=== PATIENT | male | born 1995 | race African-American/Black ===

== ENCOUNTER 2018-10-09 15:50 | Emergency (ER) | payer MEDICAID ==
[~2018-10-09] VITALS: Ht 182.9 cm; Wt 90.0 kg
[2018-10-09 17:45] VITALS: BP 124/84
== END 2018-10-09 22:45 | disposition left against medical advice (07) ==
LOC: ER 15:50
DX: R60.9 Edema, unspecified (principal); Z53.21 Procedure and treatment not carried out due to patient leaving prior to being seen by health care provider

== ENCOUNTER 2020-12-23 20:00 | Emergency (ER) | payer MEDICAID ==
[~2020-12-23] VITALS: Ht 182.9 cm; Wt 91.0 kg
[2020-12-23] MEDS ORDERED: KETOROLAC 60MG/2ML VIAL IM STA (20:29)
[2020-12-23] MEDS ORDERED: SODIUM CHLORIDE 0.9% 1,000 ML IV ONE (20:30)
[2020-12-23 22:08] LABS: BASOPHILS % 0.3 % (0.0-2.0); HEMATOCRIT. 39.6 % (42.0-52.0); HEMOGLOBIN. 13.2 g/dL (14.0-18.0); LYMPHOCYTES % 11.2 % (20.0-50.0); MEAN CORPUSCULAR VOLUME 84.3 fL (80.0-94.0); MEAN PLATELET VOLUME 8.5 fl (7.4-10.4); MONOCYTES % 9.9 % (2.0-8.0); NEUTROPHILS % 78.6 % (40.0-76.0); PLATELET 193 x1000/uL (130-400); RED CELL DISTRIBUTION WIDTH 12.7 % (11.6-14.6)
[2020-12-23 22:09] LABS: CHLORIDE 106 mEq/L (98-107)
[2020-12-23 22:13] LABS: ETHANOL BLOOD < 10 mg/dL
[2020-12-23 22:18] LABS: CREATINE KINASE 142 IU/L (39-308)
[2020-12-24] MEDS ORDERED: IBUP-2028 MT (00:25)
[2020-12-24] MEDS ORDERED: DOXY100C2 MT (00:25)
[2020-12-24 01:14] VITALS: BP 116/76
== END 2020-12-24 01:15 | disposition home or self-care (01) ==
LOC: ER 20:00
DX: J18.9 Pneumonia, unspecified organism (principal); R00.0 Tachycardia, unspecified; R03.0 Elevated blood-pressure reading, without diagnosis of hypertension
CPT/HCPCS: 36415; 71045; 74176; 80053; 80320; 82550; 83690; 83880; 84484; 85025; 85379; 93005; 96360; 96372; 99285; J1885; J7030; G0480

== ENCOUNTER 2024-07-15 00:54 | Emergency (ER) | payer MEDICAID ==
[~2024-07-15] VITALS: Ht 185.4 cm; Wt 90.0 kg
[~2024-07-15 00:54] MED LIST: DOXY100C5 MT; IBUP-2028 MT
[2024-07-15 00:58] VITALS: O2SAT 98
[2024-07-15 01:53] LABS: BASOPHILS % 0.4 % (0.0-2.0); EOSINOPHILS % 0.7 % (0.0-5.0); HEMOGLOBIN. 11.1 g/dL (14.0-18.0); MEAN CORPUSCULAR HEMOGLOBIN 27.9 pg (28.0-32.0); MEAN CORPUSCULAR HGB CONC 31.9 g/dL (31.0-37.0); MEAN CORPUSCULAR VOLUME 87.5 fL (80.0-94.0); MEAN PLATELET VOLUME 7.7 fl (7.4-10.4); NEUTROPHILS % 51.9 % (40.0-76.0); PLATELET 192 x1000/uL (130-400); RED CELL DISTRIBUTION WIDTH 14.3 % (11.6-14.6); WHITE BLOOD COUNT 5.9 x1000/uL (4.5-11.0)
[2024-07-15 02:06] LABS: CHLORIDE 108 mEq/L (98-107); POTASSIUM 3.3 mEq/L (3.5-5.1); SODIUM 142 mEq/L (136-145)
[2024-07-15 02:07] LABS: CALCIUM 8.7 mg/dL (8.7-10.4); CARBON DIOXIDE 26 mEq/L (21-32)
[2024-07-15 02:12] LABS: CREATININE 1.2 mg/dL (0.6-1.3); GLUCOSE 188 mg/dL (70-105); UREA NITROGEN BLOOD 11 mg/dL (9-23)
[2024-07-15 02:37] VITALS: BP 117/58; PULSE 90; RESP 19; TEMP 36.9; O2SAT 97
[2024-07-15 02:39] LABS: ETHANOL BLOOD < 10 mg/dL (<10)
== END 2024-07-15 02:52 | disposition home or self-care (01) ==
LOC: ER 00:54
DX: T50.901A Poisoning by unspecified drugs, medicaments and biological substances, accidental (unintentional), initial encounter (principal); Z88.0 Allergy status to penicillin; Z79.899 Other long term (current) drug therapy; X58.XXXA Exposure to other specified factors, initial encounter
CPT/HCPCS: 36415; 80048; 80320; 85025; 99283; G0480